=== PATIENT | female | born 1990 | race Caucasian/White ===

== ENCOUNTER 2019-03-06 06:38 | Day surgery (SDC) | payer BC ==
[2019-03-06] VITALS (12 sets, daily range): BP systolic 103–113; BP diastolic 60–72; PULSE 50–80; RESP 16–27; Ht 160 cm; Wt 81.2 kg
[~2019-03-06] VITALS: Ht 160 cm; Wt 81.2 kg
[2019-03-06] MEDS ORDERED: BUPIVACAINE 0.25% (MPF) 30 ML INJ ONE (06:57)
[2019-03-06] MEDS ORDERED: CEFAZOLIN 2 GM in SOD CHLORIDE 0.9% 50 ML IVPB SCH (07:00)
[2019-03-06] MEDS ORDERED: BUPIVACAINE 0.25% (STERILE-PAK) 30 ML INJ INJ ONE (07:05)
[2019-03-06] MEDS ORDERED: LIDOCAINE 1% (MDV) 20 ML INJ ONE (07:54)
[2019-03-06] MEDS ORDERED: MIDAZOLAM 1 MG/ML 2 ML INJ ONE (07:54)
[2019-03-06] MEDS ORDERED: PROPOFOL 20 ML ONE (07:54)
[2019-03-06] MEDS ORDERED: ROCURONIUM 50 MG INJ ONE (07:55)
[2019-03-06] MEDS ORDERED: HYDROmorphONE 1 MG/5 ML IV SYRINGE IV PRN ×3 (08:00)
[2019-03-06] MEDS ORDERED: OXYCODONE/ACETAMINOPHEN (5/325) TAB PO PRN ×2 (08:00)
[2019-03-06] MEDS ORDERED: MEPERIDINE 25 MG INJ IV PRN (08:00)
[2019-03-06] MEDS ORDERED: DIPHENHYDRAMINE 50 MG INJ IV PRN (08:00)
[2019-03-06] MEDS ORDERED: ONDANSETRON 4 MG INJ IV PRN (08:00)
[2019-03-06] MEDS ORDERED: ROPIVACAINE 0.5 % 30 ML VIAL ONE (08:04)
[2019-03-06] MEDS ORDERED: ONDANSETRON 4 MG INJ ONE (08:12)
[2019-03-06] MEDS ORDERED: CEFAZOLIN 1 GM INJ ONE (08:12)
[2019-03-06] MEDS ORDERED: SUGAMMADEX SODIUM 200 MG/2 ML VIAL IV ONE (08:34)
[2019-03-06] MEDS ORDERED: HYDROCODONE/APAP (5/325) TAB PO ONE (09:00)
[2019-03-06] MEDS ORDERED: SOD CHLORIDE 0.9% 1,000 ML IV SCH (11:30)
== END 2019-03-06 10:24 | disposition home or self-care (01) ==
LOC: SDS 06:38
PROVIDERS: ATTEND Surgery
DX: K80.10 Calculus of gallbladder with chronic cholecystitis without obstruction (principal)
CPT/HCPCS: 47562; 84703; J0690; J1170; J2175; J2250; J2405; J2795; J3010; Z7512; Z7610; 88304